=== PATIENT | female | born 1940 | race Caucasian/White ===

== ENCOUNTER 2018-03-11 09:51 | Outpatient (CLI) | payer MEDICARE ==
--- NOTE | 2018-03-11 16:01 | Mammography Report ---
BONE DEXA:03/11/18 09:51:00 CLINICAL: Postmenopausal. No comparison. TECHNIQUE: Two site bone DEXA performed on an Hologic scanner. FINDINGS: The average BMD of the lumbar spine L1-L4 is 0.797g/cm squared with a T-score of -2.3 and a Z-score of 0.2. The average BMD of the left hip is 0.836g/cm squared with a T-score of -0.9 and a Z-score of at 1.0. The left femoral neck BMD is 0.622g/cm squared with a T score of -2.0 and a Z score of 0.1. IMPRESSION: WHO classification: AP and with increased fracture risk based on both spine and left femoral neck measurements. RECOMMENDATION: Clinical correlation and routine screening. DEFINITIONS: BMD = Bone Mineral Density T-score = BMD related to mean peak bone mass of young adult (mean expressed in Standard Deviation) Z-score = Age matched BMD expressed in SD World Health Organization (WHO) Diagnostic Criteria Normal T-score > -1 SD Osteopenia T-score between -1 and -2.4 SD Osteoporosis T-score -2.5 SD or below NOTE: BMD is not the only risk factor for fracture. One should also consider factors such as the patient's age, risk of falling, previous osteoporotic fracture, family history of osteoporotic fractures, current smoker, and low body weight. Z-scores are not calculated if >80 years of age.
--- NOTE | 2018-03-12 08:51 | Mammography Report ---
BILATERAL DIGITAL SCREENING MAMMOGRAM with CAD: 03/11/18 09:51:00 CLINICAL: Routine screening. COMPARISON:None available. Her last mammogram was in [place]. FINDINGS: The breasts are heterogeneously dense, which may obscure small masses.Bilateral asymmetries require additional imaging. No suspicious calcifications. IMPRESSION: Bilateral asymmetries requiring further workup. BI-RADS CATEGORY: 0 -- Additional Imaging Evaluation Required RECOMMENDATION: Recall for bilateral , spot magnification CC and MLO views and bilateral breast ultrasound if needed. ACR BI-RADS MAMMOGRAPHIC CODES: 0 = Needs additional imaging evaluation; 1 = Negative; 2 = Benign; 3 = Probably benign; 4 = Suspicious; 5 = Malignant; 6 = Known biopsy-proven malignancy COMMENT: 1. Dense breast tissue, i.e., adenosis, fibrocystic changes, etc., may obscure an underlying neoplasm. 2. Approximately 10% of cancers are not detected with mammography. 3. A negative mammography report should not delay biopsy if a clinically suspicious mass is present. COMMENT: Patient follow-up letters are generated via our [employer] application.
== END 2018-03-11 09:52 | disposition home or self-care (01) ==
LOC: SPVWC 09:51
PROVIDERS: ATTEND Nurse Practitioner Family
DX: Z12.31 Encounter for screening mammogram for malignant neoplasm of breast (principal); Z13.820 Encounter for screening for osteoporosis; Z78.0 Asymptomatic menopausal state
CPT/HCPCS: 77067; 77080

== ENCOUNTER 2018-04-02 12:51 | Outpatient (CLI) | payer MEDICARE ==
--- NOTE | 2018-04-04 13:00 | Ultrasound Report ---
BILATERAL DIGITAL DIAGNOSTIC MAMMOGRAM and LEFT BREAST ULTRASOUND: 04/02/18 12:51:00 CLINICAL: Recalled for bilateral asymmetries. COMPARISON:03/11/18 screening FINDINGS: Bilateral spot magnification views and left rolled CC views were performed. Satisfactory effacement of right asymmetries and partial effacement of left asymmetries. Ultrasound of the left breast (including all four quadrants and the retroareolar area) was performed and demonstrated no solid mass or shadowing. A few mildly dilated retroareolar ducts with no intraductal mass or debris. A cyst at 9 o'clock measures 7 x 4 x 6 mm. IMPRESSION: Negative right breast and a benign left breast cyst at 9 o'clock. Benign left mammographic asymmetries. BI-RADS CATEGORY: 2 - - Benign RECOMMENDATION: Routine mammographic screening in one year. ACR BI-RADS MAMMOGRAPHIC CODES: 0 = Needs additional imaging evaluation; 1 = Negative; 2 = Benign; 3 = Probably benign; 4 = Suspicious; 5 = Malignant; 6 = Known biopsy-proven malignancy COMMENT: 1. Dense breast tissue, i.e., adenosis, fibrocystic changes, etc., may obscure an underlying neoplasm. 2. Approximately 10% of cancers are not detected with mammography. 3. A negative mammography report should not delay biopsy if a clinically suspicious mass is present. COMMENT: Patient follow-up letters are generated via our [employer] application.
== END 2018-04-02 12:52 | disposition home or self-care (01) ==
LOC: SPVWC 12:51
PROVIDERS: ATTEND Nurse Practitioner Family
DX: N60.02 Solitary cyst of left breast (principal); N64.59 Other signs and symptoms in breast
CPT/HCPCS: 77066